=== PATIENT | female | born 1965 | race Two or more races ===

== ENCOUNTER 2016-12-30 07:13 | Day surgery (SDC) | payer BC ==
[~2016-12-30] VITALS: Ht 162.6 cm; Wt 56.7 kg
== END 2016-12-30 09:56 | disposition short-term general hospital (02) ==
LOC: SURGOP 07:13
PROC: 0DJD8ZZ Inspection of Lower Intestinal Tract, Via Natural or Artificial Opening Endoscopic (ICD-10-PCS; principal; 2016-12-30)
DX: Z12.11 Encounter for screening for malignant neoplasm of colon (principal); G56.00 Carpal tunnel syndrome, unspecified upper limb; Z98.890 Other specified postprocedural states; Z88.8 Allergy status to other drugs, medicaments and biological substances
CPT/HCPCS: J2175; J2250